=== PATIENT | female | born 1940 | race African-American/Black ===

== ENCOUNTER 2021-05-30 08:44 | Observation (INO) ==
[2021-05-30] MEDS ORDERED: Nitroglycerin 0.4 MG TAB.SUBL SL PRN (09:59)
[2021-05-30 10:48] LABS: Basophils % 0.4 %; Eosinophils % 2.3 %; Hemoglobin 10.2 g/dL (11.5-15.4); Immature Granulocytes % 0.2 % (0-4)
[2021-05-30 10:50] LABS: Eosinophils # 0.1 K/mcL (0.0-0.6); Hematocrit 33.1 % (35.3-44.9); Immature Platelets 1.2 % (1.1-6.1); Lymphocytes % 31.1 %; Mean Corpuscular HGB Conc 30.8 g/dL (31.6-35.5); Mean Corpuscular Hemoglobin 23.6 pg (28.0-33.3); Mean Corpuscular Volume 76.6 fL (83.0-100.0); Mean Platelet Volume 9.3 fL (9.4-12.4); Monocytes # 0.6 K/mcL (0.0-1.3); Monocytes % 11.2 %; Neutrophils # 2.9 K/mcL (1.6-8.9); Platelet Count 200 K/mcL (140-400); Red Blood Count 4.32 M/mcL (3.82-4.97); Red Cell Distribution Width 19.7 % (11.5-14.5); Segmented Neutrophils % 54.8 %; White Blood Count 5.3 K/mcL (4.3-11.1)
[2021-05-30 10:56] LABS: Lymphocytes # 1.7 K/mcL (0.6-4.6); Prothrombin Time 11.2 Seconds (9.4-12.1)
[2021-05-30 10:59] LABS: Activated Partial Thrombo Time 33.8 Seconds (26.0-36.0)
[2021-05-30 11:04] LABS: Calcium 9.4 mg/dL (8.6-10.3); Potassium 3.9 mEq/L (3.5-5.1)
[2021-05-30 11:06] LABS: Troponin I 0.03 ng/mL (< 0.04)
[2021-05-30 11:13] LABS: Platelet Estimate Normal (Normal); Schistocytes 1+ (Not Present); Target Cells 1+ (Not Present)
[2021-05-30 11:14] LABS: Poikilocytosis 1+ (Not Present)
[2021-05-30 11:20] LABS: Influenza A PCR Negative (Negative); Influenza B PCR Negative (Negative); Resp. Syncytial Virus PCR Negative (Negative)
[2021-05-30 11:36] LABS: SARS-CoV-2 by PCR (In House) Negative (Negative)
[2021-05-30] MEDS ORDERED: Furosemide 40 MG/4 ML VIAL IVP ONE (13:57)
[2021-05-30] MEDS ORDERED: cloNIDine HCL 0.1 MG TABLET PO ONE (14:04)
[2021-05-30] MEDS ORDERED: *HR* HYDROcodone/Acet 5/325 mg TABLET PO PRN (14:20)
[2021-05-30] MEDS ORDERED: Naloxone 0.4 MG/ML INJ IVP PRN (14:21)
[2021-05-30] MEDS: Furosemide 40 MG TABLET PO SCH (16:45)
[2021-05-30] MEDS: ALPRAZolam 0.5 MG TABLET PO SCH ×2 (16:45→20:48)
[2021-05-30] MEDS: *HR* Heparin 5,000 UNIT/ML VIAL SQ SCH (16:48)
[2021-05-30] MEDS: amLODIPine 5 MG TABLET PO SCH (16:51)
[2021-05-30] MEDS: Ethyl Chloride Spray Bottle (104 SPRAY/BOTTLE) TP SCH (16:52)
[2021-05-30] MEDS: Ondansetron ODT 4 MG TAB.RAPDIS SL PRN (17:59)
[2021-05-30 18:28] LABS: Hepatitis B Surface Antibody 131.13 mIU/mL
[2021-05-30 18:39] LABS: Hepatitis B Surface Antigen Nonreactive (Nonreactive)
[2021-05-30] MEDS: cloNIDine HCL 0.1 MG TABLET PO SCH (20:49)
[2021-05-30] MEDS ORDERED: cloNIDine HCL 0.1 MG TABLET PO SCH (21:00)
[2021-05-31] MEDS: *HR* Heparin 5,000 UNIT/ML VIAL SQ SCH ×2 (05:54→17:56)
[2021-05-31] MEDS ORDERED: 0.9 % Sodium Chloride 250 ML IVC PRN (07:09)
[2021-05-31] MEDS ORDERED: 0.9 % Sodium Chloride 1,000 ML PRIME SCH (07:15)
[2021-05-31] MEDS: Spironolactone 12.5 MG TABLET PO SCH (07:39)
[2021-05-31] MEDS: amLODIPine 5 MG TABLET PO SCH (07:39)
[2021-05-31] MEDS: ALPRAZolam 0.5 MG TABLET PO SCH ×3 (07:39→20:17)
[2021-05-31] MEDS: Valsartan 160 MG TABLET PO SCH (07:39)
[2021-05-31] MEDS: allopurinoL 100 MG TABLET PO SCH (07:39)
[2021-05-31] MEDS: Furosemide 40 MG TABLET PO SCH ×2 (07:39→17:55)
[2021-05-31] MEDS: hydroCHLOROthiazide 25 MG TABLET PO SCH (07:40)
[2021-05-31] MEDS: cloNIDine HCL 0.1 MG TABLET PO SCH ×3 (07:40→20:18)
[2021-05-31] MEDS: Renal Vitamin 1 CAP CAPSULE PO SCH (07:40)
[2021-05-31 07:56] LABS: Basophils % 0.5 %; Lymphocytes % 39.1 %
[2021-05-31 07:58] LABS: Eosinophils # 0.1 K/mcL (0.0-0.6); Eosinophils % 2.5 %; Hematocrit 31.5 % (35.3-44.9); Immature Granulocytes % 0.2 % (0-4); Immature Platelets 1.3 % (1.1-6.1); Lymphocytes # 1.7 K/mcL (0.6-4.6); Mean Corpuscular HGB Conc 31.7 g/dL (31.6-35.5); Mean Corpuscular Hemoglobin 23.5 pg (28.0-33.3); Mean Corpuscular Volume 74.1 fL (83.0-100.0); Mean Platelet Volume 8.8 fL (9.4-12.4); Monocytes # 0.5 K/mcL (0.0-1.3); Monocytes % 12.5 %; Platelet Count 201 K/mcL (140-400); Red Blood Count 4.25 M/mcL (3.82-4.97); Red Cell Distribution Width 19.8 % (11.5-14.5); Segmented Neutrophils % 45.2 %; White Blood Count 4.3 K/mcL (4.3-11.1)
[2021-05-31 08:04] LABS: Neutrophils # 1.9 K/mcL (1.6-8.9)
[2021-05-31 08:23] LABS: Albumin 3.5 g/dL (3.5-5.7); Calcium 9.3 mg/dL (8.6-10.3); Magnesium 1.8 mg/dL (1.6-2.6); Phosphorous 4.3 mg/dL (2.7-4.5); Potassium 3.9 mEq/L (3.5-5.1)
[2021-05-31] MEDS ORDERED: NON-FORMULARY MEDICATION 1 EACH EACH (Omega-3/Dha/Epa/Fish Oil [Fish Oil 1,000 Mg Softgel] PO SCH (09:00)
[2021-05-31] MEDS: Ondansetron ODT 4 MG TAB.RAPDIS SL PRN (13:20)
[2021-06-01 04:44] VITALS: PULSE 63
[2021-06-01] MEDS: *HR* Heparin 5,000 UNIT/ML VIAL SQ SCH (06:13)
[2021-06-01] MEDS ORDERED: 0.9 % Sodium Chloride 250 ML IVC PRN (07:14)
[2021-06-01 07:51] VITALS: O2SAT 96
[2021-06-01 07:57] LABS: Mean Corpuscular Volume 76.6 fL (83.0-100.0)
[2021-06-01 07:59] LABS: Hematocrit 30.5 % (35.3-44.9); Hemoglobin 9.6 g/dL (11.5-15.4); Immature Platelets 1.5 % (1.1-6.1); Mean Corpuscular HGB Conc 31.5 g/dL (31.6-35.5); Mean Corpuscular Hemoglobin 24.1 pg (28.0-33.3); Mean Platelet Volume 9.1 fL (9.4-12.4); Red Blood Count 3.98 M/mcL (3.82-4.97); Red Cell Distribution Width 19.3 % (11.5-14.5); White Blood Count 4.5 K/mcL (4.3-11.1)
[2021-06-01] MEDS: ALPRAZolam 0.5 MG TABLET PO SCH ×2 (08:11→14:00)
[2021-06-01] MEDS ORDERED: Aspirin Enteric Coated 81 MG Tablet PO SCH (09:00)
[2021-06-01] MEDS: Renal Vitamin 1 CAP CAPSULE PO SCH (13:57)
[2021-06-01] MEDS: Valsartan 160 MG TABLET PO SCH (13:58)
[2021-06-01] MEDS: Spironolactone 12.5 MG TABLET PO SCH (13:58)
[2021-06-01] MEDS: amLODIPine 5 MG TABLET PO SCH (13:58)
[2021-06-01] MEDS: Furosemide 40 MG TABLET PO SCH (13:58)
[2021-06-01] MEDS: hydroCHLOROthiazide 25 MG TABLET PO SCH (13:58)
[2021-06-01] MEDS: cloNIDine HCL 0.1 MG TABLET PO SCH ×2 (13:58→13:59)
[2021-06-01] MEDS: allopurinoL 100 MG TABLET PO SCH (13:58)
[2021-06-01] MEDS: Ethyl Chloride Spray Bottle (104 SPRAY/BOTTLE) TP SCH (14:01)
[2021-06-01 14:31] VITALS: BP 189/81; TEMP 98.5
== END 2021-06-01 14:55 | disposition home or self-care (01) ==
LOC: 2ANU 08:44 → EMEROOARM 08:44 → SUATTDRO 15:41 → 2ANU 16:15
PROVIDERS: ADMIT Family Medicine; ATTEND Family Medicine

== ENCOUNTER 2021-09-18 09:27 | Inpatient (IN) ==
[2021-09-18] MEDS ORDERED: *HR* Metoprolol 5 MG/5 ML VIAL IVP ONE (09:59)
[2021-09-18] MEDS ORDERED: Nitroglycerin 1 INCH/GM PACKET TP ONE (10:03)
[2021-09-18 10:09] LABS: Hemoglobin 11.6 g/dL (11.5-15.4)
[2021-09-18 10:11] LABS: Basophils % 0.4 %; Eosinophils # 0.1 K/mcL (0.0-0.6); Eosinophils % 1.2 %; Hematocrit 36.9 % (35.3-44.9); Immature Granulocytes % 0.1 % (0-4); Immature Platelets 1.5 % (1.1-6.1); Lymphocytes # 1.5 K/mcL (0.6-4.6); Lymphocytes % 19.7 %; Mean Corpuscular HGB Conc 31.4 g/dL (31.6-35.5); Mean Corpuscular Hemoglobin 24.7 pg (28.0-33.3); Mean Corpuscular Volume 78.5 fL (83.0-100.0); Mean Platelet Volume 9.1 fL (9.4-12.4); Monocytes # 0.8 K/mcL (0.0-1.3); Monocytes % 10.3 %; Neutrophils # 5.3 K/mcL (1.6-8.9); Platelet Count 228 K/mcL (140-400); Red Cell Distribution Width 22.2 % (11.5-14.5); Segmented Neutrophils % 68.3 %; White Blood Count 7.7 K/mcL (4.3-11.1)
[2021-09-18 10:18] LABS: INR 1.1; Prothrombin Time 12.3 Seconds (9.4-12.1)
[2021-09-18 10:39] LABS: Calcium 10.5 mg/dL (8.6-10.3); Potassium 4.5 mEq/L (3.5-5.1); Troponin I 0.06 ng/mL (< 0.04)
[2021-09-18] MEDS ORDERED: Melatonin 3 MG TABLET PO PRN (11:15)
[2021-09-18] MEDS ORDERED: Naloxone 0.4 MG/ML INJ IVP PRN (11:15)
[2021-09-18] MEDS ORDERED: Ondansetron 4 MG/2 ML VIAL IVP PRN (11:15)
[2021-09-18] MEDS ORDERED: Mag Hydrox/Al Hydrox/Simeth 30 ML UDC PO PRN (11:15)
[2021-09-18] MEDS ORDERED: Perflutren Lipid Microsphere 1.3 ML in 0.9 % Sodium Chloride 8.7 ML IVP PRN (11:21)
[2021-09-18] MEDS ORDERED: Furosemide 40 MG/4 ML VIAL IVP ONE ×2 (12:06→12:37)
[2021-09-18] MEDS ORDERED: 0.9 % Sodium Chloride 250 ML IVC PRN (13:40)
[2021-09-18] MEDS ORDERED: Ethyl Chloride Spray Bottle (104 SPRAY/BOTTLE) TP PRN (13:40)
[2021-09-18] MEDS ORDERED: 0.9 % Sodium Chloride 1,000 ML PRIME SCH (13:45)
[2021-09-18] MEDS ORDERED: Morphine Sulfate 2 MG/ML SYRINGE IVP ONE ×2 (14:32→14:55)
[2021-09-18] MEDS ORDERED: Nitroglycerin 0.4 MG TAB.SUBL SL PRN (14:36)
[2021-09-18] MEDS ORDERED: *HR* Labetalol 20 MG/4 ML SYRINGE IVP ONE ×2 (14:38→15:12)
[2021-09-18] MEDS ORDERED: Morphine Sulfate 2 MG/ML SYRINGE ONE (14:45)
[2021-09-18] MEDS ORDERED: *HR* LORazepam 2 MG/ML VIAL IVP ONE ×3 (14:49→20:10)
[2021-09-18 14:50] LABS: Thyroid Stimulating Hormone 3.202 mcIU/mL (0.340-5.600)
[2021-09-18] MEDS ORDERED: Isovue-370 500 ML BOTTLE IVP ONE ×2 (14:51→14:53)
[2021-09-18] MEDS ORDERED: *HR* Midazolam HCl 2 MG/2 ML VIAL IVP ONE ×3 (15:06→20:10)
[2021-09-18] MEDS ORDERED: *HR* Etomidate 20 MG/10 ML AMPUL IVP ONE ×2 (15:07→20:10)
[2021-09-18] MEDS ORDERED: *HR* Labetalol 20 MG/4 ML SYRINGE IVP PRN (15:09)
[2021-09-18] MEDS ORDERED: *HR* FentaNYL (PF) 100 MCG/2 ML VIAL ONE (15:11)
[2021-09-18] MEDS ORDERED: *HR* FentaNYL (PF) 100 MCG/2 ML VIAL IVP ONE (15:12)
[2021-09-18] MEDS ORDERED: Artificial Tears SOLN 15 ML BOTTLE BOTH EYES PRN (15:46)
[2021-09-18] MEDS: FentaNYL (PF) 1,000 MCG/100 ML IV.SOLN IVC SCH (16:27)
[2021-09-18] MEDS: niCARdipine 20 MG/200 ML MLS IVC SCH ×2 (17:37→23:58)
[2021-09-18 17:48] LABS: ABG Base Excess 3 mEq/L (-2 to 3); ABG HCO3 28 mEq/L (21-27); ABG Oxygen Saturation 100 % (95-98); ABG PCO2 48 mmHg (35-45); ABG PH 7.38 pH Units (7.32-7.45); ABG PO2 175 mmHg (85-104); ABG TCO2 30 mEq/L (20-26); Blood Gas Modality ASSIST CONTROL; Blood Gas VT 380 cc
[2021-09-18] MEDS ORDERED: *HR* Midazolam HCl 5 MG/5 ML VIAL IVP ONE (20:10)
[2021-09-18] MEDS: Budesonide/Formoterol 160/4.5 1 PUFF INH IH SCH (20:19)
[2021-09-18] MEDS: Artificial Tears SOLN 15 ML BOTTLE BOTH EYES SCH ×2 (20:22→20:30)
[2021-09-18] MEDS: Dexmedetomidine HCl 400 MCG/100 ML MLS IVC SCH (20:24)
[2021-09-18] MEDS: Chlorhexidine Rinse 15 ML MOUTHWASH MM SCH (20:29)
[2021-09-18] MEDS: Furosemide 40 MG/4 ML VIAL IVP SCH (20:29)
[2021-09-18] MEDS: Pantoprazole 40 MG VIAL IVP SCH (20:30)
[2021-09-19] MEDS: Artificial Tears SOLN 15 ML BOTTLE BOTH EYES SCH ×6 (00:01→21:43)
[2021-09-19] MEDS: niCARdipine 20 MG/200 ML MLS IVC SCH ×6 (00:02→19:41)
[2021-09-19 03:34] LABS: VBG Ionized Calcium 1.11 mmol/L (1.15-1.35)
[2021-09-19 03:56] LABS: Albumin 2.9 g/dL (3.5-5.7); Albumin/Globulin Ratio 1.9 (1.1-2.2); Bilirubin,Direct 0.1 mg/dL (0.0-0.2); Bilirubin,Indirect 0.3 mg/dL (0.0-1.0); Bilirubin,Total 0.4 mg/dL (0.3-1.0); Globulin 1.5 g/dL (2.4-3.5); Magnesium 1.6 mg/dL (1.6-2.6); Phosphorous 4.8 mg/dL (2.7-4.5); Potassium 3.7 mEq/L (3.5-5.1); Total Protein 4.4 g/dL (6.4-8.9)
[2021-09-19] MEDS: FentaNYL (PF) 1,000 MCG/100 ML IV.SOLN IVC SCH ×2 (04:11→22:53)
[2021-09-19 04:29] LABS: ABG Base Excess 1 mEq/L (-2 to 3); ABG HCO3 24 mEq/L (21-27); ABG Oxygen Saturation 97 % (95-98); ABG PCO2 32 mmHg (35-45); ABG PH 7.48 pH Units (7.32-7.45); ABG PO2 79 mmHg (85-104); ABG TCO2 25 mEq/L (20-26); Blood Gas Modality ASSIST CONTROL; Blood Gas VT 380 cc
[2021-09-19 04:59] LABS: Immature Granulocytes % 0.3 % (0-4); Red Cell Distribution Width 21.7 % (11.5-14.5)
[2021-09-19 05:01] LABS: Basophils % 0.4 %; Eosinophils # 0.1 K/mcL (0.0-0.6); Eosinophils % 1.1 %; Hematocrit 30.5 % (35.3-44.9); Hemoglobin 9.7 g/dL (11.5-15.4); Immature Platelets 1.3 % (1.1-6.1); Lymphocytes # 1.5 K/mcL (0.6-4.6); Lymphocytes % 19.5 %; Mean Corpuscular HGB Conc 31.8 g/dL (31.6-35.5); Mean Corpuscular Hemoglobin 24.7 pg (28.0-33.3); Mean Corpuscular Volume 77.8 fL (83.0-100.0); Mean Platelet Volume 9.1 fL (9.4-12.4); Monocytes % 13.2 %; Neutrophils # 4.9 K/mcL (1.6-8.9); Platelet Count 191 K/mcL (140-400); Red Blood Count 3.92 M/mcL (3.82-4.97); Segmented Neutrophils % 65.5 %; White Blood Count 7.5 K/mcL (4.3-11.1)
[2021-09-19] MEDS: Chlorhexidine Rinse 15 ML MOUTHWASH MM SCH ×2 (07:22→21:42)
[2021-09-19] MEDS: Furosemide 40 MG/4 ML VIAL IVP SCH ×2 (07:22→16:38)
[2021-09-19] MEDS: Pantoprazole 40 MG VIAL IVP SCH (07:23)
[2021-09-19] MEDS: Budesonide/Formoterol 160/4.5 1 PUFF INH IH SCH ×2 (07:33→23:55)
[2021-09-19] MEDS ORDERED: 0.9 % Sodium Chloride 250 ML IVC PRN (08:01)
[2021-09-19] MEDS ORDERED: Ethyl Chloride Spray Bottle (104 SPRAY/BOTTLE) TP PRN (08:01)
[2021-09-19] MEDS: ALPRAZolam 0.5 MG TABLET PO SCH ×3 (08:24→21:42)
[2021-09-19] MEDS: hydrALAZINE 25 MG TABLET PO SCH ×3 (08:24→21:42)
[2021-09-19] MEDS: cloNIDine HCL 0.1 MG TABLET PO SCH ×3 (08:24→21:42)
[2021-09-19] MEDS: allopurinoL 100 MG TABLET PO SCH (08:24)
[2021-09-19] MEDS: Dexmedetomidine HCl 400 MCG/100 ML MLS IVC SCH (14:16)
[2021-09-20] MEDS: niCARdipine 20 MG/200 ML MLS IVC SCH ×6 (01:16→18:37)
[2021-09-20] MEDS: Artificial Tears SOLN 15 ML BOTTLE BOTH EYES SCH ×6 (01:30→20:15)
[2021-09-20] MEDS: *HR* Heparin 5,000 UNIT/ML VIAL SQ SCH ×3 (01:33→17:07)
[2021-09-20 04:43] LABS: Red Cell Distribution Width 21.2 % (11.5-14.5)
[2021-09-20 04:45] LABS: Basophils % 0.2 %; Eosinophils # 0.1 K/mcL (0.0-0.6); Eosinophils % 1.2 %; Hematocrit 34.3 % (35.3-44.9); Immature Granulocytes % 0.4 % (0-4); Immature Platelets 1.7 % (1.1-6.1); Lymphocytes # 1.1 K/mcL (0.6-4.6); Lymphocytes % 12.4 %; Mean Corpuscular HGB Conc 32.1 g/dL (31.6-35.5); Monocytes # 1.2 K/mcL (0.0-1.3); Neutrophils # 6.5 K/mcL (1.6-8.9); Platelet Count 197 K/mcL (140-400); Segmented Neutrophils % 72.8 %; White Blood Count 8.9 K/mcL (4.3-11.1)
[2021-09-20 04:46] LABS: VBG Ionized Calcium 1.06 mmol/L (1.15-1.35)
[2021-09-20 04:59] LABS: ABG Base Excess 6 mEq/L (-2 to 3); ABG HCO3 28 mEq/L (21-27); ABG Oxygen Saturation 95 % (95-98); ABG PCO2 32 mmHg (35-45); ABG PH 7.55 pH Units (7.32-7.45); ABG PO2 64 mmHg (85-104); ABG TCO2 29 mEq/L (20-26); Blood Gas Modality AF; Blood Gas VT 380 cc
[2021-09-20 05:02] LABS: Albumin 3.5 g/dL (3.5-5.7); Albumin/Globulin Ratio 1.7 (1.1-2.2); Bilirubin,Direct 0.2 mg/dL (0.0-0.2); Bilirubin,Indirect 0.4 mg/dL (0.0-1.0); Bilirubin,Total 0.6 mg/dL (0.3-1.0); Globulin 2.1 g/dL (2.4-3.5); Phosphorous 4.6 mg/dL (2.7-4.5); Potassium 4.3 mEq/L (3.5-5.1); Total Protein 5.6 g/dL (6.4-8.9)
[2021-09-20] MEDS: Chlorhexidine Rinse 15 ML MOUTHWASH MM SCH ×2 (07:16→20:14)
[2021-09-20] MEDS: Pantoprazole 40 MG VIAL IVP SCH (07:16)
[2021-09-20] MEDS: Furosemide 40 MG/4 ML VIAL IVP SCH (07:17)
[2021-09-20] MEDS: allopurinoL 100 MG TABLET PO SCH (07:17)
[2021-09-20] MEDS: hydrALAZINE 25 MG TABLET PO SCH ×3 (07:17→20:14)
[2021-09-20] MEDS: cloNIDine HCL 0.1 MG TABLET PO SCH ×3 (07:17→20:15)
[2021-09-20] MEDS: ALPRAZolam 0.5 MG TABLET PO SCH ×3 (07:17→20:14)
[2021-09-20] MEDS: Budesonide/Formoterol 160/4.5 1 PUFF INH IH SCH ×2 (07:44→20:39)
[2021-09-20] MEDS: Dexmedetomidine HCl 400 MCG/100 ML MLS IVC SCH (15:54)
[2021-09-20] MEDS ORDERED: hydroCHLOROthiazide 25 MG TABLET PO SCH (16:15)
[2021-09-20] MEDS ORDERED: Valsartan 160 MG TABLET PO SCH (16:15)
[2021-09-20] MEDS: Furosemide 40 MG TABLET PO SCH (16:20)
[2021-09-21] MEDS: Artificial Tears SOLN 15 ML BOTTLE BOTH EYES SCH ×4 (00:29→16:24)
[2021-09-21] MEDS: niCARdipine 20 MG/200 ML MLS IVC SCH ×6 (03:15→19:10)
[2021-09-21] MEDS: FentaNYL (PF) 1,000 MCG/100 ML IV.SOLN IVC SCH (03:16)
[2021-09-21 03:33] LABS: ABG Base Excess 2 mEq/L (-2 to 3); ABG HCO3 27 mEq/L (21-27); ABG Oxygen Saturation 95 % (95-98); ABG PCO2 41 mmHg (35-45); ABG PH 7.43 pH Units (7.32-7.45); ABG PO2 75 mmHg (85-104); ABG TCO2 28 mEq/L (20-26)
[2021-09-21 05:48] LABS: Basophils % 0.2 %; Eosinophils % 0.3 %; Hemoglobin 9.6 g/dL (11.5-15.4); Mean Corpuscular Volume 78.2 fL (83.0-100.0)
[2021-09-21 05:50] LABS: Hematocrit 29.8 % (35.3-44.9); Immature Granulocytes % 0.3 % (0-4); Immature Platelets 1.5 % (1.1-6.1); Lymphocytes # 1.1 K/mcL (0.6-4.6); Lymphocytes % 11.3 %; Mean Corpuscular HGB Conc 32.2 g/dL (31.6-35.5); Mean Corpuscular Hemoglobin 25.2 pg (28.0-33.3); Mean Platelet Volume 8.8 fL (9.4-12.4); Monocytes # 1.4 K/mcL (0.0-1.3); Monocytes % 14.3 %; Platelet Count 197 K/mcL (140-400); Red Blood Count 3.81 M/mcL (3.82-4.97); Red Cell Distribution Width 21.2 % (11.5-14.5); Segmented Neutrophils % 73.6 %; White Blood Count 9.5 K/mcL (4.3-11.1)
[2021-09-21] MEDS: *HR* Heparin 5,000 UNIT/ML VIAL SQ SCH (05:53)
[2021-09-21 05:56] LABS: Albumin 2.9 g/dL (3.5-5.7); Albumin/Globulin Ratio 1.6 (1.1-2.2); Bilirubin,Direct 0.2 mg/dL (0.0-0.2); Bilirubin,Indirect 0.3 mg/dL (0.0-1.0); Bilirubin,Total 0.5 mg/dL (0.3-1.0); Calcium 7.4 mg/dL (8.6-10.3); Globulin 1.8 g/dL (2.4-3.5); Magnesium 1.7 mg/dL (1.6-2.6); Potassium 3.9 mEq/L (3.5-5.1); Total Protein 4.7 g/dL (6.4-8.9)
[2021-09-21] MEDS: Budesonide/Formoterol 160/4.5 1 PUFF INH IH SCH ×2 (08:06→20:11)
[2021-09-21] MEDS ORDERED: Ethyl Chloride Spray Bottle (104 SPRAY/BOTTLE) TP PRN ×2 (09:17→19:10)
[2021-09-21] MEDS ORDERED: 0.9 % Sodium Chloride 250 ML IVC PRN (09:17)
[2021-09-21] MEDS: ALPRAZolam 0.5 MG TABLET PO SCH ×3 (15:53→20:52)
[2021-09-21] MEDS: hydrALAZINE 25 MG TABLET PO SCH ×4 (15:54→20:52)
[2021-09-21] MEDS: cloNIDine HCL 0.1 MG TABLET PO SCH ×4 (15:54→20:51)
[2021-09-21] MEDS: Dexmedetomidine HCl 400 MCG/100 ML MLS IVC SCH (15:55)
[2021-09-21] MEDS ORDERED: ALPRAZolam 0.5 MG TABLET PO ONE (17:22)
[2021-09-21] MEDS: Furosemide 40 MG TABLET PO SCH (17:27)
[2021-09-21] MEDS ORDERED: Mag Hydrox/Al Hydrox/Simeth 30 ML UDC PO PRN (19:10)
[2021-09-21] MEDS ORDERED: Nitroglycerin 0.4 MG TAB.SUBL SL PRN (19:10)
[2021-09-21] MEDS ORDERED: Artificial Tears SOLN 15 ML BOTTLE BOTH EYES PRN (19:10)
[2021-09-21] MEDS ORDERED: Naloxone 0.4 MG/ML INJ IVP PRN (19:10)
[2021-09-21] MEDS ORDERED: Ondansetron 4 MG/2 ML VIAL IVP PRN (19:10)
[2021-09-21] MEDS ORDERED: 0.9 % Sodium Chloride 1,000 ML PRIME SCH (19:10)
[2021-09-22] MEDS: niCARdipine 20 MG/200 ML MLS IVC SCH ×5 (00:03→16:14)
[2021-09-22] MEDS ORDERED: Dexmedetomidine HCl 400 MCG/100 ML MLS IVC ONE (00:50)
[2021-09-22] MEDS: Dexmedetomidine HCl 400 MCG/100 ML MLS IVC SCH ×2 (00:50→16:16)
[2021-09-22] MEDS: *HR* Heparin 5,000 UNIT/ML VIAL SQ SCH ×2 (04:59→16:06)
[2021-09-22 05:46] LABS: Basophils % 0.2 %; Eosinophils # 0.1 K/mcL (0.0-0.6); Hematocrit 24.6 % (35.3-44.9); Hemoglobin 7.7 g/dL (11.5-15.4); Immature Granulocytes % 0.3 % (0-4); Immature Platelets 1.5 % (1.1-6.1); Lymphocytes # 0.6 K/mcL (0.6-4.6); Lymphocytes % 9.3 %; Mean Corpuscular HGB Conc 31.3 g/dL (31.6-35.5); Mean Corpuscular Volume 79.9 fL (83.0-100.0); Mean Platelet Volume 9.2 fL (9.4-12.4); Monocytes % 17.1 %; Neutrophils # 4.3 K/mcL (1.6-8.9); Platelet Count 133 K/mcL (140-400); Red Blood Count 3.08 M/mcL (3.82-4.97); Red Cell Distribution Width 21.2 % (11.5-14.5); Segmented Neutrophils % 72.1 %
[2021-09-22 06:29] LABS: Albumin 1.7 g/dL (3.5-5.7); Albumin/Globulin Ratio 1.7 (1.1-2.2); Bilirubin,Total 0.3 mg/dL (0.3-1.0); Calcium 4.4 mg/dL (8.6-10.3); Phosphorous 2.7 mg/dL (2.7-4.5); Potassium 2.3 mEq/L (3.5-5.1); Total Protein 2.7 g/dL (6.4-8.9)
[2021-09-22] MEDS ORDERED: Valsartan 160 MG TABLET PO SCH (09:00)
[2021-09-22 09:16] LABS: Hematocrit 32.8 % (35.3-44.9); Hemoglobin 10.6 g/dL (11.5-15.4)
[2021-09-22 09:20] LABS: VBG Ionized Calcium 1.14 mmol/L (1.15-1.35)
[2021-09-22] MEDS: Calcium Gluconate 1gm/50mL 1 GM/50 ML BAG IVPB SCH ×2 (09:49→10:48)
[2021-09-22] MEDS: hydrALAZINE 25 MG TABLET PO SCH ×3 (09:49→22:15)
[2021-09-22] MEDS: allopurinoL 100 MG TABLET PO SCH (09:49)
[2021-09-22] MEDS: ALPRAZolam 0.5 MG TABLET PO SCH ×3 (09:49→22:14)
[2021-09-22] MEDS: Furosemide 40 MG TABLET PO SCH ×2 (09:50→16:06)
[2021-09-22] MEDS: hydroCHLOROthiazide 25 MG TABLET PO SCH (09:50)
[2021-09-22] MEDS: cloNIDine HCL 0.1 MG TABLET PO SCH ×3 (09:50→22:15)
[2021-09-22] MEDS: Pantoprazole 40 MG VIAL IVP SCH (09:51)
[2021-09-22 10:12] LABS: Folate > 22.3 ng/mL (3.0-16.0); Vitamin B12 > 1500 pg/mL (250-1100)
[2021-09-22 10:33] LABS: % Iron Saturation 18 % (15-50); BUN/Creatinine Ratio 6 (6-26); Blood Urea Nitrogen 32 mg/dL (8-23); Calcium 9.4 mg/dL (8.6-10.3); Carbon Dioxide 27 mEq/L (23-29); Chloride 97 mEq/L (98-107); Ferritin > 1500 ng/mL (10-120); Glucose 91 mg/dL (70-105); Iron 32 mcg/dL (50-170); Osmolality,Calculated 288 (280-300); Potassium 4.5 mEq/L (3.5-5.1); Sodium 136 mEq/L (136-145); Transferrin 126 mg/dL (203-362); eGFR For African Americans 9 (> 60); eGFR For Non-African Americans 8 (> 60)
[2021-09-22] MEDS: Budesonide/Formoterol 160/4.5 1 PUFF INH IH SCH ×2 (11:24→20:53)
[2021-09-22] MEDS ORDERED: NIFEdipine XL (24 HR) 30 MG TAB.ER.24 PO SCH (11:30)
[2021-09-22 13:16] LABS: Calcium 9.9 mg/dL (8.6-10.3); Potassium 5.4 mEq/L (3.5-5.1)
[2021-09-22] MEDS: QUEtiapine Fumarate 25 MG TABLET PO SCH (22:15)
[2021-09-23] MEDS: niCARdipine 20 MG/200 ML MLS IVC SCH (00:24)
[2021-09-23 04:57] LABS: Hemoglobin 9.2 g/dL (11.5-15.4)
[2021-09-23 04:58] LABS: VBG Ionized Calcium 1.02 mmol/L (1.15-1.35)
[2021-09-23 04:59] LABS: Hematocrit 28.6 % (35.3-44.9); Immature Platelets 1.2 % (1.1-6.1); Mean Corpuscular HGB Conc 32.2 g/dL (31.6-35.5); Mean Corpuscular Volume 77.7 fL (83.0-100.0); Mean Platelet Volume 9.3 fL (9.4-12.4); Platelet Count 174 K/mcL (140-400); Red Blood Count 3.68 M/mcL (3.82-4.97); Red Cell Distribution Width 19.9 % (11.5-14.5); White Blood Count 5.4 K/mcL (4.3-11.1)
[2021-09-23 05:22] LABS: Albumin 3.3 g/dL (3.5-5.7); Albumin/Globulin Ratio 1.3 (1.1-2.2); Bilirubin,Total 0.6 mg/dL (0.3-1.0); Calcium 9.2 mg/dL (8.6-10.3); Globulin 2.5 g/dL (2.4-3.5); Magnesium 2.5 mg/dL (1.6-2.6); Potassium 5.3 mEq/L (3.5-5.1); Total Protein 5.8 g/dL (6.4-8.9)
[2021-09-23 05:44] LABS: Anisocytosis 1+ (Not Present); Eosinophils # 0.2 K/mcL (0.0-0.6); Hypochromasia Present (Not Present); Lymphocytes # 1.1 K/mcL (0.6-4.6); Monocytes # 0.7 K/mcL (0.0-1.3); Neutrophils # 3.5 K/mcL (1.6-8.9); Platelet Estimate Normal (Normal)
[2021-09-23] MEDS: *HR* Heparin 5,000 UNIT/ML VIAL SQ SCH ×2 (06:46→17:00)
[2021-09-23] MEDS: Budesonide/Formoterol 160/4.5 1 PUFF INH IH SCH ×2 (07:44→19:54)
[2021-09-23] MEDS: cloNIDine HCL 0.1 MG TABLET PO SCH ×3 (08:17→21:22)
[2021-09-23] MEDS: ALPRAZolam 0.5 MG TABLET PO SCH ×3 (08:18→21:22)
[2021-09-23] MEDS: Pantoprazole 40 MG VIAL IVP SCH (08:19)
[2021-09-23] MEDS: hydrALAZINE 25 MG TABLET PO SCH ×4 (08:21→21:22)
[2021-09-23] MEDS: Furosemide 40 MG TABLET PO SCH ×2 (08:21→15:38)
[2021-09-23] MEDS: allopurinoL 100 MG TABLET PO SCH (08:22)
[2021-09-23] MEDS: hydroCHLOROthiazide 25 MG TABLET PO SCH (08:22)
[2021-09-23] MEDS ORDERED: Valsartan 160 MG TABLET PO SCH (09:00)
[2021-09-23] MEDS ORDERED: *HR* Labetalol 20 MG/4 ML SYRINGE IVP ONE (20:00)
[2021-09-23] MEDS: QUEtiapine Fumarate 25 MG TABLET PO SCH (21:22)
[2021-09-24] MEDS: niCARdipine 20 MG/200 ML MLS IVC SCH ×6 (02:39→21:14)
[2021-09-24 05:51] LABS: Basophils % 0.3 %; Eosinophils # 0.1 K/mcL (0.0-0.6); Eosinophils % 1.2 %; Hematocrit 28.7 % (35.3-44.9); Hemoglobin 9.4 g/dL (11.5-15.4); Immature Granulocytes % 0.4 % (0-4); Lymphocytes # 1.2 K/mcL (0.6-4.6); Lymphocytes % 17.9 %; Mean Corpuscular HGB Conc 32.8 g/dL (31.6-35.5); Mean Corpuscular Hemoglobin 25.3 pg (28.0-33.3); Mean Corpuscular Volume 77.4 fL (83.0-100.0); Mean Platelet Volume 10.7 fL (9.4-12.4); Monocytes # 1.4 K/mcL (0.0-1.3); Monocytes % 20.4 %; Platelet Count 221 K/mcL (140-400); Red Blood Count 3.71 M/mcL (3.82-4.97); Red Cell Distribution Width 19.5 % (11.5-14.5); Segmented Neutrophils % 59.8 %; White Blood Count 6.7 K/mcL (4.3-11.1)
[2021-09-24 06:00] LABS: VBG Ionized Calcium 0.95 mmol/L (1.15-1.35)
[2021-09-24 06:15] LABS: Albumin 3.4 g/dL (3.5-5.7); Albumin/Globulin Ratio 1.4 (1.1-2.2); Bilirubin,Total 0.6 mg/dL (0.3-1.0); Calcium 9.5 mg/dL (8.6-10.3); Globulin 2.4 g/dL (2.4-3.5); Magnesium 2.6 mg/dL (1.6-2.6); Phosphorous 6.3 mg/dL (2.7-4.5); Potassium 5.5 mEq/L (3.5-5.1); Total Protein 5.8 g/dL (6.4-8.9)
[2021-09-24] MEDS: *HR* Heparin 5,000 UNIT/ML VIAL SQ SCH ×2 (06:24→17:02)
[2021-09-24] MEDS: Dexmedetomidine HCl 400 MCG/100 ML MLS IVC SCH (06:24)
[2021-09-24] MEDS: Budesonide/Formoterol 160/4.5 1 PUFF INH IH SCH ×2 (07:35→21:42)
[2021-09-24] MEDS ORDERED: 0.9 % Sodium Chloride 250 ML IVC PRN (08:41)
[2021-09-24] MEDS: Ethyl Chloride Spray Bottle (104 SPRAY/BOTTLE) TP PRN (10:30)
[2021-09-24] MEDS: Furosemide 40 MG TABLET PO SCH ×2 (11:06→15:43)
[2021-09-24] MEDS: hydrALAZINE 25 MG TABLET PO SCH ×4 (11:06→21:08)
[2021-09-24] MEDS: hydroCHLOROthiazide 25 MG TABLET PO SCH (11:06)
[2021-09-24] MEDS: Valsartan 160 MG TABLET PO SCH (11:06)
[2021-09-24] MEDS: cloNIDine HCL 0.1 MG TABLET PO SCH ×3 (11:06→21:07)
[2021-09-24] MEDS: ALPRAZolam 0.5 MG TABLET PO SCH ×3 (11:07→21:07)
[2021-09-24] MEDS: allopurinoL 100 MG TABLET PO SCH (11:07)
[2021-09-24] MEDS: QUEtiapine Fumarate 25 MG TABLET PO SCH (21:07)
[2021-09-25 04:41] LABS: VBG Ionized Calcium 1.15 mmol/L (1.15-1.35)
[2021-09-25 04:43] LABS: Immature Granulocytes % 0.3 % (0-4)
[2021-09-25 04:45] LABS: Basophils % 0.3 %; Eosinophils # 0.1 K/mcL (0.0-0.6); Eosinophils % 0.8 %; Hematocrit 35.6 % (35.3-44.9); Hemoglobin 11.2 g/dL (11.5-15.4); Immature Platelets 2.1 % (1.1-6.1); Lymphocytes # 1.4 K/mcL (0.6-4.6); Lymphocytes % 21.7 %; Mean Corpuscular HGB Conc 31.5 g/dL (31.6-35.5); Mean Corpuscular Hemoglobin 24.3 pg (28.0-33.3); Mean Corpuscular Volume 77.4 fL (83.0-100.0); Mean Platelet Volume 10.3 fL (9.4-12.4); Monocytes # 1.3 K/mcL (0.0-1.3); Monocytes % 20.8 %; Neutrophils # 3.6 K/mcL (1.6-8.9); Platelet Count 207 K/mcL (140-400); Red Cell Distribution Width 19.1 % (11.5-14.5); Segmented Neutrophils % 56.1 %; White Blood Count 6.4 K/mcL (4.3-11.1)
[2021-09-25] MEDS: niCARdipine 20 MG/200 ML MLS IVC SCH ×6 (05:03→21:16)
[2021-09-25] MEDS: *HR* Heparin 5,000 UNIT/ML VIAL SQ SCH ×2 (05:11→17:25)
[2021-09-25 06:21] LABS: Albumin 3.4 g/dL (3.5-5.7); Albumin/Globulin Ratio 1.3 (1.1-2.2); Bilirubin,Total 0.6 mg/dL (0.3-1.0); Calcium 9.6 mg/dL (8.6-10.3); Globulin 2.6 g/dL (2.4-3.5); Magnesium 2.3 mg/dL (1.6-2.6); Phosphorous 5.3 mg/dL (2.7-4.5); Potassium 4.7 mEq/L (3.5-5.1)
[2021-09-25] MEDS: Budesonide/Formoterol 160/4.5 1 PUFF INH IH SCH ×2 (07:46→20:44)
[2021-09-25] MEDS: Furosemide 40 MG TABLET PO SCH ×2 (08:22→17:26)
[2021-09-25] MEDS: ALPRAZolam 0.5 MG TABLET PO SCH ×3 (08:22→20:14)
[2021-09-25] MEDS: Valsartan 160 MG TABLET PO SCH (08:22)
[2021-09-25] MEDS: cloNIDine HCL 0.1 MG TABLET PO SCH ×3 (08:22→20:14)
[2021-09-25] MEDS: allopurinoL 100 MG TABLET PO SCH (08:22)
[2021-09-25] MEDS: hydrALAZINE 25 MG TABLET PO SCH ×3 (08:23→20:14)
[2021-09-25] MEDS: Dexmedetomidine HCl 400 MCG/100 ML MLS IVC SCH (11:05)
[2021-09-25] MEDS: Nitroglycerin 1 INCH/GM PACKET TP SCH (18:18)
[2021-09-25] MEDS: QUEtiapine Fumarate 25 MG TABLET PO SCH (20:14)
[2021-09-26] MEDS: Nitroglycerin 1 INCH/GM PACKET TP SCH ×3 (02:05→16:24)
[2021-09-26 02:55] LABS: Hematocrit 33.2 % (35.3-44.9); Mean Corpuscular HGB Conc 33.1 g/dL (31.6-35.5); Mean Corpuscular Hemoglobin 25.3 pg (28.0-33.3); Mean Corpuscular Volume 76.5 fL (83.0-100.0); Mean Platelet Volume 9.4 fL (9.4-12.4); Red Blood Count 4.34 M/mcL (3.82-4.97); Red Cell Distribution Width 19.1 % (11.5-14.5); White Blood Count 8.7 K/mcL (4.3-11.1)
[2021-09-26] MEDS: Dexmedetomidine HCl 400 MCG/100 ML MLS IVC SCH (03:24)
[2021-09-26] MEDS: niCARdipine 20 MG/200 ML MLS IVC SCH (03:24)
[2021-09-26 04:13] LABS: Calcium 8.5 mg/dL (8.6-10.3); Potassium 4.6 mEq/L (3.5-5.1)
[2021-09-26] MEDS: *HR* Heparin 5,000 UNIT/ML VIAL SQ SCH ×2 (06:03→16:22)
[2021-09-26] MEDS: Budesonide/Formoterol 160/4.5 1 PUFF INH IH SCH ×2 (07:47→20:37)
[2021-09-26] MEDS ORDERED: Ethyl Chloride Spray Bottle (104 SPRAY/BOTTLE) TP PRN (08:33)
[2021-09-26] MEDS ORDERED: 0.9 % Sodium Chloride 250 ML IVC PRN (08:33)
[2021-09-26] MEDS: Valsartan 160 MG TABLET PO SCH (08:36)
[2021-09-26] MEDS: cloNIDine HCL 0.1 MG TABLET PO SCH ×3 (08:36→22:29)
[2021-09-26] MEDS: Furosemide 40 MG TABLET PO SCH ×3 (08:37→16:24)
[2021-09-26] MEDS: allopurinoL 100 MG TABLET PO SCH (08:37)
[2021-09-26] MEDS: ALPRAZolam 0.5 MG TABLET PO SCH ×3 (08:37→22:29)
[2021-09-26] MEDS: hydrALAZINE 25 MG TABLET PO SCH ×4 (08:38→22:29)
[2021-09-26] MEDS ORDERED: *HR* Heparin 10,000 UNIT/10 ML VIAL IV PRN (09:47)
[2021-09-26] MEDS: NIFEdipine XL (24 HR) 30 MG TAB.ER.24 PO SCH (16:23)
[2021-09-26] MEDS: QUEtiapine Fumarate 25 MG TABLET PO SCH (22:29)
[2021-09-27] MEDS: Nitroglycerin 1 INCH/GM PACKET TP SCH (02:08)
[2021-09-27] MEDS: *HR* Heparin 5,000 UNIT/ML VIAL SQ SCH ×2 (05:18→16:55)
[2021-09-27] MEDS: Acetaminophen 325 MG TABLET PO PRN (05:25)
[2021-09-27 06:50] LABS: Eosinophils % 0.5 %; Mean Platelet Volume 10.4 fL (9.4-12.4)
[2021-09-27 06:53] LABS: Basophils % 0.3 %; Hematocrit 32.5 % (35.3-44.9); Hemoglobin 10.4 g/dL (11.5-15.4); Immature Granulocytes % 0.7 % (0-4); Immature Platelets 2.9 % (1.1-6.1); Lymphocytes # 1.4 K/mcL (0.6-4.6); Lymphocytes % 18.9 %; Mean Corpuscular Hemoglobin 24.5 pg (28.0-33.3); Mean Corpuscular Volume 76.5 fL (83.0-100.0); Monocytes % 18.2 %; Neutrophils # 4.5 K/mcL (1.6-8.9); Platelet Count 233 K/mcL (140-400); Red Blood Count 4.25 M/mcL (3.82-4.97); Red Cell Distribution Width 18.7 % (11.5-14.5); Segmented Neutrophils % 61.4 %; White Blood Count 7.4 K/mcL (4.3-11.1)
[2021-09-27 06:57] LABS: Monocytes # 1.4 K/mcL (0.0-1.3); Platelet Estimate Normal (Normal)
[2021-09-27 07:20] LABS: Calcium 9.3 mg/dL (8.6-10.3); Potassium 4.2 mEq/L (3.5-5.1)
[2021-09-27] MEDS: Budesonide/Formoterol 160/4.5 1 PUFF INH IH SCH ×2 (07:39→20:06)
[2021-09-27] MEDS: ALPRAZolam 0.5 MG TABLET PO SCH ×3 (08:59→19:53)
[2021-09-27] MEDS: NIFEdipine XL (24 HR) 30 MG TAB.ER.24 PO SCH (08:59)
[2021-09-27] MEDS: Furosemide 40 MG TABLET PO SCH ×2 (08:59→16:54)
[2021-09-27] MEDS: cloNIDine HCL 0.1 MG TABLET PO SCH ×3 (09:01→19:53)
[2021-09-27] MEDS: Valsartan 160 MG TABLET PO SCH (09:01)
[2021-09-27] MEDS: allopurinoL 100 MG TABLET PO SCH (09:02)
[2021-09-27] MEDS: hydrALAZINE 25 MG TABLET PO SCH ×3 (09:25→19:53)
[2021-09-27] MEDS ORDERED: Cefepime HCl 1,000 MG in 0.9 % Sodium Chloride 10 ML IVP SCH (19:00)
[2021-09-27] MEDS: Azithromycin 500 MG in 0.9 % Sodium Chloride 250 ML IVPB SCH (19:52)
[2021-09-27] MEDS: Cefepime HCl 1,000 MG in 0.9 % Sodium Chloride 10 ML IVP SCH (19:52)
[2021-09-27] MEDS: Melatonin 3 MG TABLET PO PRN (19:53)
[2021-09-27] MEDS: QUEtiapine Fumarate 25 MG TABLET PO SCH (19:53)
[2021-09-28 04:22] LABS: Basophils % 0.4 %; Eosinophils % 1.6 %; Hemoglobin 10.4 g/dL (11.5-15.4)
[2021-09-28 04:24] LABS: Eosinophils # 0.1 K/mcL (0.0-0.6); Hematocrit 32.4 % (35.3-44.9); Immature Granulocytes % 0.4 % (0-4); Immature Platelets 2.6 % (1.1-6.1); Lymphocytes # 1.7 K/mcL (0.6-4.6); Lymphocytes % 33.3 %; Mean Corpuscular HGB Conc 32.1 g/dL (31.6-35.5); Mean Corpuscular Hemoglobin 24.9 pg (28.0-33.3); Mean Corpuscular Volume 77.5 fL (83.0-100.0); Mean Platelet Volume 10.3 fL (9.4-12.4); Monocytes % 16.5 %; Platelet Count 237 K/mcL (140-400); Red Blood Count 4.18 M/mcL (3.82-4.97); Red Cell Distribution Width 18.6 % (11.5-14.5); Segmented Neutrophils % 47.8 %; White Blood Count 5.1 K/mcL (4.3-11.1)
[2021-09-28 04:43] LABS: Monocytes # 0.8 K/mcL (0.0-1.3); Neutrophils # 2.4 K/mcL (1.6-8.9)
[2021-09-28 04:48] LABS: Calcium 9.4 mg/dL (8.6-10.3); Potassium 4.4 mEq/L (3.5-5.1)
[2021-09-28] MEDS: Acetaminophen 325 MG TABLET PO PRN (06:02)
[2021-09-28] MEDS: *HR* Heparin 5,000 UNIT/ML VIAL SQ SCH ×2 (06:02→18:08)
[2021-09-28] MEDS: Budesonide/Formoterol 160/4.5 1 PUFF INH IH SCH ×2 (07:43→20:08)
[2021-09-28] MEDS ORDERED: *HR* Heparin 10,000 UNIT/10 ML VIAL IV PRN ×2 (08:44)
[2021-09-28] MEDS ORDERED: 0.9 % Sodium Chloride 250 ML IVC PRN (08:44)
[2021-09-28] MEDS: Valsartan 160 MG TABLET PO SCH (09:52)
[2021-09-28] MEDS: ALPRAZolam 0.5 MG TABLET PO SCH ×3 (09:52→21:19)
[2021-09-28] MEDS: cloNIDine HCL 0.1 MG TABLET PO SCH ×3 (09:52→21:18)
[2021-09-28] MEDS: hydrALAZINE 25 MG TABLET PO SCH ×3 (09:52→21:18)
[2021-09-28] MEDS: allopurinoL 100 MG TABLET PO SCH (09:52)
[2021-09-28] MEDS: NIFEdipine XL (24 HR) 30 MG TAB.ER.24 PO SCH (09:53)
[2021-09-28] MEDS: Furosemide 40 MG TABLET PO SCH ×2 (09:56→18:08)
[2021-09-28] MEDS: Ethyl Chloride Spray Bottle (104 SPRAY/BOTTLE) TP PRN (11:20)
[2021-09-28 15:43] VITALS: TEMP 98.1
[2021-09-28] MEDS: Cefepime HCl 1,000 MG in 0.9 % Sodium Chloride 10 ML IVP SCH (21:17)
[2021-09-28] MEDS: QUEtiapine Fumarate 25 MG TABLET PO SCH (21:19)
[2021-09-28] MEDS: Melatonin 3 MG TABLET PO PRN (21:19)
[2021-09-28] MEDS ORDERED: Azithromycin 500 MG VIAL ONE (21:28)
[2021-09-28] MEDS: Azithromycin 500 MG in 0.9 % Sodium Chloride 250 ML IVPB SCH (21:35)
[2021-09-29 01:55] VITALS: PULSE 77
[2021-09-29 01:58] VITALS: BP 214/105; O2SAT 100
[2021-09-29] MEDS: *HR* Heparin 5,000 UNIT/ML VIAL SQ SCH (05:41)
[2021-09-29] MEDS: allopurinoL 100 MG TABLET PO SCH (09:35)
[2021-09-29] MEDS: hydrALAZINE 25 MG TABLET PO SCH (09:35)
[2021-09-29] MEDS: ALPRAZolam 0.5 MG TABLET PO SCH (09:35)
[2021-09-29] MEDS: cloNIDine HCL 0.1 MG TABLET PO SCH (09:35)
[2021-09-29] MEDS: Valsartan 160 MG TABLET PO SCH (09:35)
[2021-09-29] MEDS: Furosemide 40 MG TABLET PO SCH (09:37)
[2021-09-29] MEDS: Budesonide/Formoterol 160/4.5 1 PUFF INH IH SCH (10:33)
[2021-09-29] MEDS ORDERED: NIFEdipine XL (24 HR) 30 MG TAB.ER.24 PO SCH (21:00)
== END 2021-09-29 12:39 | disposition left against medical advice (07) | DRG 280 ==
LOC: SUATTDRO → EMEROOARM 09:27 → 2NNU 14:31 → SUATTDRO 14:31 → ICNU 14:58 → 2NNU 09-21 19:08
PROVIDERS: ADMIT Family Medicine; ATTEND Internal Medicine